=== PATIENT | male | born 1940 | race Caucasian/White ===

== ENCOUNTER → 2024-04-05 15:27 | Outpatient (BNVA) | payer MEDICARE, SELFPAY | PROVIDERS: Referring Provider Nurse Practitioner Family; Visit Provider Specialist | DX: R20.0 Anesthesia of skin (principal); R20.2 Paresthesia of skin; G56.03 Carpal tunnel syndrome, bilateral upper limbs | CPT/HCPCS: 95910 ==

== ENCOUNTER → 2024-05-07 10:17 | Outpatient (BNVA) | payer MEDICARE, SELFPAY | PROVIDERS: Visit Provider Specialist | DX: G56.03 Carpal tunnel syndrome, bilateral upper limbs (principal); Z01.818 Encounter for other preprocedural examination | CPT/HCPCS: 36415; 73130; 80053; 81001; 85025; 99204 ==

== ENCOUNTER 2024-07-03 10:55 | Day surgery (SDC) | payer MEDICARE, SELFPAY ==
[2024-07-03] VITALS (9 sets, daily range): BP systolic 118–161; BP diastolic 75–97; PULSE 63–95; RESP 15–18; TEMP 36.1–36.6; O2SAT 92–99; BMI 31.1
--- NOTE | 2024-07-03 11:30 | W.PM.OPSFHP ---
Same Day Surgery H&P Indication for Procedure/HPI DATE OF PROCEDURE: July 03, 2024 CHIEF COMPLAINT/INDICATIONFOR SURGICAL PROCEDURE: Right carpal tunnel syndrome PREOP DIAGNOSIS: Right carpal tunnel syndrome PLANNED PROCEDURE: Operation Date: 07/03/24 13:10 Proposed Procedures p Carpal Tunnel Release(Right) - Brie Tafoya MD Medications/Allergies* Home Medications ?Medication ?Instructions ?Recorded ?Confirmed ?Type carvedilol 6.25 mg tablet 6.25 mg PO BID 05/07/24 07/02/24 History clopidogrel 75 mg tablet 75 mg PO DAILY 05/07/24 07/02/24 History evolocumab 140 mg/mL subcutaneous 140 mg SUBCUT .every 2 weeks 05/07/24 07/02/24 History pen injector (Aixa Aguilera) isosorbide mononitrate 30 mg 30 mg PO DAILY 05/07/24 07/02/24 History tablet,extended release 24 hr pantoprazole 20 mg tablet,delayed 20 mg PO BID 05/07/24 07/02/24 History release tamsulosin 0.4 mg capsule 0.4 mg PO DAILY 05/07/24 07/02/24 History timolol 0.25 % eye drops 1 drp ophthalmic (eye) BID 05/07/24 07/02/24 History Allergies/Adverse Reactions Allergy/AdvReac Type Severity Reaction Status Date / Time [id number]-[id number]-PpD Reductase Allergy Unknown Verified 07/02/24 12:16 Inhibitor Pertinent History/Comorbid Conditions* Patient received preoperative cardiac clearance Social History Smoking and tobacco/nicotine status: never used tobacco/nicotine Pertinent Exam Findings alert, oriented x 3, clear to auscultation bilaterally, regular rate & rhythm and operative site marked Recommendations Surgery/Procedure today Coding Level of Care Code Acute Code for Chg Fwd
[2024-07-03] MEDS: sodium chloride 0.9% 1,000 ML 30 ML IV (11:51)
[2024-07-03] MEDS: acetaminophen 1,000 MG/100 ML PIGGYBACK 400 MG IV (11:51)
[2024-07-03] MEDS: CELEcoxib 200 mg Capsule 400 MG PO (11:52)
[2024-07-03] MEDS: gabapentin 300 mg Capsule PO (11:52)
--- NOTE | 2024-07-03 12:52 | ANES.PREANE2 ---
Pre-Anesthetic Assessment Height/Weight: Height 5 ft 8 in Weight 205 lb Temp Pulse Resp BP Pulse Ox O2 Del Method 97.9 F 95 18 148/97 94 Room Air 07/03/24 11:07/03/24 11:07/03/24 11:07/03/24 11:26 07/03/24 11:07/03/24 11:30 Preop Diagnosis: Right carpal tunnel syndrome Operation Date: 07/03/24 13:10 Proposed Procedures p Carpal Tunnel Release(Right) - Brie Tafoya MD Was Beta Henrietta taken within 24 hours: Yes Was Clonidine taken within 24 hours: N/A Last intake: Intake Last Liquid Date 07/02/24 Last Liquid Time 22:30 Last Solid Date 07/02/24 Last Solid Time 22:30 Social No alcohol and No tobacco Exam alert, oriented x 3, clear to auscultation bilaterally and regular rate & rhythm Airway Submandibular: within normal limits Cervical ROM: within normal limits Mallampati: Class III Comments: Comments: Poor dentition, only 1 upper tooth, multiple missing on the bottom. Denies any loose Anesthetic Plan ASA status: 3 Anesthesia: General Other: No prior issues with anesthesia NPO since yesterday History of CAD, on chronic Plavix. Last taken 07/02/2024 Hypertension on carvedilol. Preop BP 148/97 GERD on Protonix Patient is able to perform ADLs. Cardiac clearance given, recent echo was performed at [facility]. Although we are unable to see the results, patient states he was told it looked great Plan for general anesthesia with local via surgeon Medications/Allergies Home Medications ?Medication ?Instructions ?Recorded ?Confirmed ?Last Taken ?Type carvedilol 6.25 mg tablet 6.25 mg PO BID 05/07/24 07/02/24 07/03/24 History clopidogrel 75 mg tablet 75 mg PO DAILY 05/07/24 07/02/24 07/02/24 History evolocumab 140 mg/mL subcutaneous 140 mg SUBCUT .every 2 weeks 05/07/24 07/02/24 06/28/24 History pen injector (Aixa Aguilera) isosorbide mononitrate 30 mg 30 mg PO DAILY 05/07/24 07/02/24 07/03/24 History tablet,extended release 24 hr pantoprazole 20 mg tablet,delayed 20 mg PO BID 05/07/24 07/02/24 07/02/24 History release tamsulosin 0.4 mg capsule 0.4 mg PO DAILY 05/07/24 07/02/24 06/25/24 History timolol 0.25 % eye drops 1 drp ophthalmic (eye) BID 05/07/24 07/02/24 07/02/24 History Allergies Allergy/AdvReac Type Severity Reaction Status Date / Time Cwiovzq-ZRS-CcQ Reductase Allergy Unknown Verified 07/02/24 12:16 Inhibitor Current Medications Generic Name Dose Route Start Last Admin Trade Name Freq PRN Reason Stop Dose Admin Sodium Chloride 1,000 mls @ 30 mls/hr 07/03/24 11:30 07/03/24 11:51 Sodium Chloride 0.9% IV 07/04/24 11:29 30 mls/hr .Q24H MANDO Administration PFSH Anesthesia Social History Smoking and tobacco/nicotine status: never used tobacco/nicotine Data Anesthesia Cardiac Studies: No Data to Display
[2024-07-03] MEDS: ceFAZolin 2,000 mg SDV 2000 MG IVP (13:21)
[2024-07-03] MEDS: BUPivacaine 0.5% INJ 30 mL XX (13:41)
--- NOTE | 2024-07-03 14:17 | PM.OP ---
Operative Report Date of procedure: July 03, 2024 Pre-op diagnosis: Right carpal tunnel syndrome Post-op diagnosis: Right carpal tunnel syndrome Post-op findings: Severe compression across the carpal canal with purplish discoloration of the median nerve Procedure done: Right carpal tunnel release Implants: None Specimens removed/disposition: None Pathology: None Surgeon: Brie Tafoya MD Automatic Nailing Machine Operator: None Anesthesia: General (Per LMA) Estimated blood loss (mL): 2 Tourniquet time (min): 21 (At 250 mmHg) IV fluids (mL): 600 Urine output (mL): 0 (No Sant[place]) Complications: None Findings: Significant compression across the carpal canal with hourglass deformity to the median nerve Disposition: PACU (Then return to same-day surgery for discharge to home) Brief History: This 83-year-old gentleman presents with symptoms of severe carpal tunnel bilaterally. The right was greater than the left, and upon initial evaluation, decision was made to proceed with right carpal tunnel release. Risks and complications were discussed with him in the office, and consents were signed. Questions were answered at that time. The patient was seen in the preoperative holding area and again given the opportunity to ask questions and consent was reviewed with him. Procedure: The patient was brought to the operating theater. The patient had a general anesthesia per LMA. The tourniquet was elevated to 250 mmHg for a total tourniquet time of 21 minutes. The patient was also given Ancef 2 g preoperatively. The arm was then prepped and draped with DuraPrep in usual fashion with the arm draped free. A surgical pause was performed. At the time, the surgical pause, we confirmed the site and side of surgery. We also confirmed the patient's identity, appropriate and timely administration of preoperative antibiotics and preoperative surgical markings. An incision was then made along the thenar crease. The incision crossed the wrist joint in a curvilinear fashion. Dissection continued through skin and soft tissues using a scalpel. The palmaris longus was identified along with the transverse carpal ligament. Each of these was released carefully to avoid injury to the median nerve. We were able to dissect gently into the carpal canal which was noted to be quite tight with significant compression across the median nerve. The nerve was visualized and was an hourglass shape. The canal was subsequently palpated to assure there was no bony encroachment upon the canal. There was a quite thickened fibrous tissue within the canal, and this was opened longitudinally as well. The canal was then palpated distally and proximally to assure that my small finger was passed easily without impingement. Finding this to be so, attention was directed to closure. The wound was irrigated with ropivacaine plain. It was then closed with 3-0 nylon in an interrupted mattress fashion. Sterile dressing was then placed consisting of Dermabond, OpSite, fluffed fluffs, sterile soft roll, and an Alber wrap. The tourniquet was released after 21 minutes. There were no complications. There were no specimens. The procedure was well tolerated. Plan is the patient will be discharged home. Related Problem List Diagnoses (1) Carpal tunnel syndrome on right:
--- NOTE | 2024-07-04 15:21 | ANE.PACU2 ---
Inpatient post-anesthesia follow up: Airway intact: Yes Vital signs: Temperature 97.2 F Pulse Rate 81 Respiratory Rate 17 Blood Pressure 155/95 Pulse Oximetry 92 Oxygen Delivery Me thod Room Air Oxygen Flow Rate 6 Fraction of Inspir ed Oxygen Hydration adequate: Yes Nausea and vomiting: No Pain level: 1 Mental status: Baseline
== END 2024-07-03 15:21 | disposition home or self-care (01) ==
PROVIDERS: PCP Registered Nurse; Visit Provider Specialist
PROC: (CPT 64721; principal; 2024-07-03 13:10)
DX: G56.01 Carpal tunnel syndrome, right upper limb (principal); Z88.8 Allergy status to other drugs, medicaments and biological substances; I25.10 Atherosclerotic heart disease of native coronary artery without angina pectoris; K08.409 Partial loss of teeth, unspecified cause, unspecified class; I10 Essential (primary) hypertension; Z79.899 Other long term (current) drug therapy; Z79.02 Long term (current) use of antithrombotics/antiplatelets
CPT/HCPCS: 64721; J0131; J0690; J2704; J3010; J3490; J7030

== ENCOUNTER → 2024-07-18 14:52 | Outpatient (BNVA) | payer MEDICARE, SELFPAY | PROVIDERS: PCP Registered Nurse; Visit Provider Specialist | DX: Z98.890 Other specified postprocedural states (principal) | CPT/HCPCS: 99024 ==